=== PATIENT | female | born 1955 | race Caucasian/White ===

== ENCOUNTER 2021-07-23 01:20 | Emergency (ER) | payer MEDICARE, MEDICAID ==
[~2021-07-23] VITALS: Ht 160 cm; Wt 54.5 kg
[~2021-07-23 01:20] MED LIST: ACETTAB3 OR; ALORA0.1 MG PO; ALPRAZOLAM0.25 M1 PO; AMOX/K CLAV500 MG PO; AMOXICILLIN/CL875 MG PO; AMOXICILLIN875 MG OR; AMOXICILLIN875 MG PO; AUGMENTIN500TAB PO; AUGMENTIN875TAB PO; CEPHALEXIN500 MG OR; CIPROFLOXACN500 MG PO; CLARITIN10 M2 PO; DILAUDID8 MG PO; DONNATA1 OR; DOXYCYCL HYC100 MG PO; ESTRACE0.1 MG/GM TOP; FLORASTOR250 M1 PO; FOSAMAX70 MG PO; KEFLEX500 MG PO; MAXALT10 MG OR; METHADONE10 M1 OR; METHADONE10 M1 PO; MIRALAX3350 NF PO; MORPHINE SUL15 M2 OR; MORPHINE SUL30 M3 PO; MORPHINE SULFAT15 M1 PO; MSM/GLUCOSA1 PO; MUPIROCIN2 % EX; NAPROXEN500 MG OR; NITROFURANTN100 MG PO; OPANA ER5 MG OR; OXYCONTIN30 MG; PENICILLN VK500 MG PO; PERCOCET 10/31 COMBO PO; PERCOCET1 TA2 OR; PERCOCET1 TA4 PO; POM IJ; POM PO; POM SC; PREMARIN PO; PREMARIN0.3 MG OR; PREMARIN1.25 MG PO; PROTONIX40 M2 PO; RELPAX40 MG OR; TRAMADOL HCL50 MG OR; VEETIDS250 MG OR; VICODIN HP1 TA1 PO; ZOFRAN ODT4 MG OR; [UNRECOGNIZED DRUG - OTHER]
[2021-07-23 01:51] VITALS: BP 158/88
[2021-07-24] MEDS ORDERED: AMOX/K CLAV875 M1 PO (14:11)
== END 2021-07-23 01:57 | disposition home or self-care (01) ==
LOC: ED 01:20
DX: L27.1 Localized skin eruption due to drugs and medicaments taken internally (principal); I10 Essential (primary) hypertension; T36.3X5A Adverse effect of macrolides, initial encounter

== ENCOUNTER 2021-07-24 12:31 | Emergency (ER) | payer MEDICARE, MEDICAID ==
[~2021-07-24] VITALS: Ht 160 cm; Wt 70.0 kg
[2021-07-24] MEDS ORDERED: AMOX/K CLAV875 M1 PO (14:11)
[2021-07-24 14:55] VITALS: BP 128/77
== END 2021-07-24 14:55 | disposition home or self-care (01) ==
LOC: ED 12:31
DX: J06.9 Acute upper respiratory infection, unspecified (principal); Z20.822 Contact with and (suspected) exposure to COVID-19

== ENCOUNTER → 2023-09-16 | Day surgery (SDC) | payer MEDICARE, MEDICAID ==
[~2023-09-16] MED LIST changes: +AMOX/K CLAV875 M1 PO; +BACTRIM DS1 TAB PO; +CEPHALEXIN500 M1 PO; +CRANBERRY250 M1 PO; +DOXY-CAPS100 MG PO; +NEXIUM40 M1 PO; +RIZATRIPTAN BENZ5 M1 PO
== END | disposition home or self-care (01) ==
LOC: ORM 02:00
PROVIDERS: ATTEND Internal Medicine Gastroenterology
DX: Z01.818 Encounter for other preprocedural examination (principal); Z11.52 Encounter for screening for COVID-19; K21.9 Gastro-esophageal reflux disease without esophagitis